=== PATIENT | female | born 1965 | race Caucasian/White ===

== ENCOUNTER 2024-02-21 13:38 | Emergency (ER) | payer OTHER, SELFPAY ==
[2024-02-21 13:41] VITALS: BP 127/86
[2024-02-21 14:49] VITALS: BMI 27.2
[2024-02-21 14:50] VITALS: BP 111/77
[2024-02-21 15:01] VITALS: BP 113/74
[2024-02-21 15:14] LABS: % Basophils 0.3 % (0-2); % Eosinophils 0.8 % (0-6); % Immature Granulocytes 0.1 % (0-0.5); % Lymphocytes 13.4 % (20.5-51.1); % Monocytes 8.8 % (1.7-9.3); % Neutrophils 76.6 % (42.2-75.2); Absolute Eosinophils 0.1 10^3/uL (0-0.7); Absolute Monocytes 0.7 10^3/uL (0.1-0.6); Absolute Neutrophils 5.8 10^3/uL (1.4-6.5); Hemoglobin 13.5 g/dL (12.0-16.0); Mean Corp Hgb Conc. 32.9 g/dL (33.0-37.0); Mean Corpuscular Volume 91.1 fL (81.0-99.0); Mean Platelet Volume 9.2 fL (7.4-10.4); Nucleated Red Blood Cells % 0 %; Platelet Count 357 10^3/uL (130-400); White Blood Cell Count 7.5 10^3/uL (4.8-10.8)
[2024-02-21 15:25] LABS: HCG, Serum Qualitative Screen Negative
--- NOTE | 2024-02-21 15:29 | ED.GENMED ---
History of Present Illness
<Ladan Amaya PA-C - Last Filed: 02/21/24 23:48>
General
Chief Complaint: Abdominal Pain
Source: patient
Exam Limitations: none
Time Seen by Provider: 02/21/24 15:04
Nursing documentation reviewed up to this point in time: agreed with
Travel History
Have you had any contact with someone who has COVID-19?: No
Do you have any symptoms of coronavirus? Fever > 100 degrees, chills, cough, shortness of breath, sore throat, loss of taste or smell, muscle aches, or headache?: No
History of Present Illness
History of Present Illness:
Patient is a 58 year old female with no significant past medical history presenting for evaluation of abdominal pain. She reports that last night around 1AM she had an acute onset sharp abdominal pain in left upper abdomen associated with 3 episodes
of vomiting. She also reports a few loose bowel movements last night. By late morning she felt that her abdominal pain had significantly decreased and she was only feeling a 'dull ache' throughout her abdomen. She was seen in urgent care who
referred her to the emergency department for further evaluation. She denies any fever, chills, chest pain, shortness of breath. No urinary symptoms, hematemesis, hematochezia, or melena. Currently she reports mild 'discomfort' throughout her abdomen
and has not had any more episodes of vomiting or diarrhea.
Patient does report 2 other similar episodes over the past few weeks that were more mild in severity.
She denies any other sick contacts. She states that she ate a prepared chicken and kale dish last night for dinner and popcorn. No recent travel.
Patients LMP was > 5 years ago.
Past History
<Ladan Amaya PA-C - Last Filed: 02/21/24 23:48>
Past History
ED Past Medical History: None
Social History
Tobacco: Non-smoker
Alcohol: Occasional
Personal:
Living: with family
Family History
Family History: Other (Her son recently returned from [place] but is not sick. Father had coronary disease mother had arthritis and RSD. There is a family history of strokes)
Phy Exam
<Ladan Amaya PA-C - Last Filed: 02/21/24 23:48>
Physical Exam
Physical Exam:
General: In no apparent distress, nontoxic appearing
HEENT:Atraumatic, normocephalic; pupils equal round and reactive to light bilaterally, protecting airway
Neck: appears supple, no meningeal sings, trachea midline
CV: RRR, heart sounds normal, No evidence of cyanosis
Resp: No evidence of respiratory distress, lungs clear bilaterally
Abd: Soft, diffusely tender in lower abdomen without rebound or guarding, non-distended; no CVA tenderness
Extremities: No deformities, no evidence of cyanosis or edema
Neuro: alert and oriented x3; grossly intact
Psych: Normal affect
Skin: Intact, no rashes
Course
<Ladan Amaya PA-C - Last Filed: 02/21/24 23:48>
Orders/Labs/Results
Orders:
Orders
02/21/24 14:48
Test Result ONCE
02/21/24 14:58
Complete Blood Count/With Diff Urgent
Comprehensive Metabolic Panel Urgent
HCG, Serum Qualitative Screen Urgent
Lipase Urgent
02/21/24 15:36
0.9% Sodium Chloride 1000 ml [Nss] 1,000 ml IV BOLUS
02/21/24 15:37
CT Abd/pelvis W Iv Cont Urgent
Comment:
Reason For Exam: diffuse abdominal pain, vomiting
Abnormal Lab Results
02/21/24
14:58
MCHC 32.9 L g/dL
(33.0-37.0)
Absolute Lymphs (auto) 1.0 L 10^3/uL
(1.2-3.4)
Absolute Monos (auto) 0.7 H 10^3/uL
(0.1-0.6)
Neutrophils % 76.6 H %
(42.2-75.2)
Lymphocytes % 13.4 L %
(20.5-51.1)
Creatinine 0.5 L mg/dL
(0.6-1.0)
02/21/24 14:58
02/21/24 14:58
Vital Signs
Initial and Last Documented VS:
Initial Vital Signs
Temp Pulse Resp BP Pulse Ox
98.2 F 78 18 127/86 99
02/21/24 13:41 02/21/24 13:41 02/21/24 13:41 02/21/24 13:41 02/21/24 13:41
Last Documented Vital Signs
Temp Pulse Resp BP Pulse Ox
98.2 F 78 18 122/64 98
02/21/24 13:41 02/21/24 13:41 02/21/24 13:41 02/21/24 18:03 02/21/24 18:30
<Curtis Roberts MD - Last Filed: 02/21/24 20:29>
Orders/Labs/Results
Orders:
Orders
02/21/24 14:48
Test Result ONCE
02/21/24 14:58
Complete Blood Count/With Diff Urgent
Comprehensive Metabolic Panel Urgent
HCG, Serum Qualitative Screen Urgent
Lipase Urgent
02/21/24 15:36
0.9% Sodium Chloride 1000 ml [Nss] 1,000 ml IV BOLUS
02/21/24 15:37
CT Abd/pelvis W Iv Cont Urgent
Comment:
Reason For Exam: diffuse abdominal pain, vomiting
Abnormal Lab Results
02/21/24
14:58
MCHC 32.9 L g/dL
(33.0-37.0)
Absolute Lymphs (auto) 1.0 L 10^3/uL
(1.2-3.4)
Absolute Monos (auto) 0.7 H 10^3/uL
(0.1-0.6)
Neutrophils % 76.6 H %
(42.2-75.2)
Lymphocytes % 13.4 L %
(20.5-51.1)
Creatinine 0.5 L mg/dL
(0.6-1.0)
02/21/24 14:58
02/21/24 14:58
Vital Signs
Initial and Last Documented VS:
Initial Vital Signs
Temp Pulse Resp BP Pulse Ox
98.2 F 78 18 127/86 99
02/21/24 13:41 02/21/24 13:41 02/21/24 13:41 02/21/24 13:41 02/21/24 13:41
Last Documented Vital Signs
Temp Pulse Resp BP Pulse Ox
98.2 F 78 18 122/64 98
02/21/24 13:41 02/21/24 13:41 02/21/24 13:41 02/21/24 18:03 02/21/24 18:30
<Ladan Amaya PA-C - Last Filed: 02/21/24 23:48>
MDM/Problems Addressed
Differential Diagnosis Includes:
colitis, food poisoning, gastritis, gastric ulcer, pancreatitis, diverticulitis, appendicitis
MDM/Problems Addressed:
Patient is a 58-year-old female with no significant past medical history presenting for evaluation of diffuse abdominal pain with associated nausea and vomiting. No fever or chills. Mostly asymptomatic this time. Her vital signs are normal on
arrival. Physical exam as documented above. Symptoms most consistent with likely gastroenteritis. Will check basic labs, lipase, . Based on severity of pain�will check CAT scan of abdomen pelvis. Starting IV fluids. Patient denies any
medication for nausea or pain at this time.
CBC without any clinically significant abnormalities. CMP without any clinically significant abnormalities. test negative. CT scan showed findings consistent with enteritis with additional note of moderate ascites within the pelvis.
May all be related to enteritis. Patient does not have a history of liver disease. She does not drink alcohol. Patient is currently undergoing follow-up with GI for possible IBS/celiac disease. She has endoscopy and colonoscopy scheduled in the
near future.
She has remained mainly asymptomatic with stable vital signs since arriving to the emergency department. She is stable for discharge with close GI follow-up, bland diet, return precautions. Patient comfortable with this plan. All questions
answered.
Chronic conditions affecting care:
N/A
Acute Exacerbation and/or Progression of Chronic Illness:
N/A
<Ladan Amaya PA-C - Last Filed: 02/21/24 23:48>
*Radiology
Radiology exam reviewed: preliminary read by ED provider and radiology read reviewed
*Pulse Oximetry
Patient hypoxic: no
*EKG
Interpreted by ED Provider?: NA
*Mail List Processor Interpretation
Rate: Mail List Processor- N/A
*Critical Care Note
Total Time (30-74mins, 75-104mins- exclusive of procedures): Not Applicable
ED Attending Note
<Ladan Amaya PA-C - Last Filed: 02/21/24 23:48>
-
Portions of this chart may have been created with voice recognition software.� Occasional wrong word or��sound alike� substitutions may have occurred due to the inherent limitations of voice recognition software.
<Curtis Roberts MD - Last Filed: 02/21/24 20:29>
ED Attending Note
Patient seen and examined by attending physician: Yes
ED Attending Note:
HPI: 58-year-old female with no significant chronic medical issues, prior surgical history of and tubal ligation presents to the emergency department for evaluation of abdominal pain. Patient reports onset of symptoms yesterday night and
she says she was essentially up all night with intense pain in the left abdomen and had a few episodes of vomiting. She says she did have some loose stools yesterday. No blood in vomiting or stools. Denies any fevers or chills. She initially
went to urgent care for assessment and was referred to ED for further evaluation. She says that she has seen gastroenterology in the past (Dr. Ceja) because she is very sensitive to certain foods; she says she is currently in the midst of workup
for celiac disease, SIBO, food sensitivities.
ROS: Positive for abdominal pain, nausea, vomiting, diarrhea; negative for fever, chills, vaginal bleeding, urinary symptoms
Physical exam:
General: Awake, alert, oriented x3; no acute distress
Head: Normocephalic, atraumatic
Eyes: Conjunctiva normal, sclera anicteric
Throat: Airway intact, handling secretions
Neck: Trachea midline, supple without meningismus
Lungs: Breathing comfortably no distress
Heart: Regular rate
Abd: Normoactive bowel sounds, abdomen is soft, non distended, nontender with no abdominal mass
Neuro: No gross deficits
Skin: no rash
Extremities: Warm well-perfused
Differential diagnosis: Enteritis, food poisoning, diverticulitis, kidney stone, bowel obstruction
Medical decision makin-year-old female presents for evaluation of abdominal pain associate with nausea, vomiting, loose stools. Vital signs are normal. Exam as above. We sent basic labs including a CBC which showed no significant
abnormalities, CMP which was within acceptable range. Her lipase is normal. Her hCG is negative. Her CT of the abdomen pelvis shows signs consistent with enteritis; incidentally she also was noted to have moderate volume ascites. She has no
history of liver disease and says she does not drink any alcohol. She is already known to GI she will follow-up with them for further assessment of this. I did send a message to gastroenterology to ensure good follow-up. Symptoms today likely
related to enteritis. Advised regarding brat diet. Spoke about return precautions all questions answered.
Chronic conditions affecting care: N/A
Acute exacerbation or progression of chronic illness: N/A
History source: Patient, spouse
Data reviewed: N/A
Medications/testing considered: N/A
Social determinants of health: N/A
Discussion with other providers: Gastroenterology
Discharge Plan
Departure
Patient Disposition: Home (Routine Discharge)
Date of Disposition: 02/21/24
Time of Disposition: 19:00
Patient with high blood pressure during this ER visit?: No
Covid-19: Not Applicable
Discharge Problem:
Enteritis, Abdominal pain
Instructions: Mcdaniels Diet, Fluid in the Belly (Ascites) (DC), Abdominal Pain, Adult ED
Prescriptions:
New
ondansetron 4 mg tablet,disintegrating
4 mg PO Q8H PRN (Reason: nausea and vomiting) Qty: 7 0RF
No Action
Adrenal Support Supplement
1 tab PO DAILY
ibuprofen 400 MG tablet
400 mg PO Q4HPRN PRN (Reason: pain)
lactase [Dairy Relief] 1 CAPSULE tablet
1 cap PO QIDPRN PRN (Reason: dairy ingestion)
multivitamin with minerals [Hair,Skin and Nails] 1 EACH tablet
1 ea PO DAILY
progesterone micronized 100 MG capsule
25 mg PO BID
docosahexaenoic acid-epa 1 CAP capsule
1 cap PO DAILY
multivitamin with folic acid [Tab-A-Arjun] 1 TABLET tablet
1 tab PO DAILY
Dehist
1 tab PO TID
Thyroid Support Supplement
1 tab PO DAILY
Referrals:
Ron Curtis DO [Family Provider] -
Activity Restrictions/Additional Instructions:
- Return to the emergency department with any high fevers, severe abdominal pain, intractable nausea/vomiting, severe back pain, worsening current symptoms, or any other concerns
-As discussed�you should follow-up with your GI doctor for further evaluation/management
-Prescription for Zofran has been sent to your pharmacy. You can take this every 8 hours as needed for severe nausea
-It is important to stay well-hydrated
Interventions
Interventions:
*Risk Screen - Suicide Last Done: 02/21/24 13:41
*General Assessment Last Done: 02/21/24 13:41
*Neglect/Abuse Screening Last Done: 02/21/24 14:49
*ED COVID-19 Vaccine History Last Done: 02/21/24 13:41
*Nursing Disposition Last Done: 02/21/24 19:33
SQ-Vhvpdn-Qwjaxpmcvy Assessment Last Done: 02/21/24 14:49
Discharge Date and Time
Discharge Date/Time: 02/21/24 19:34
Print Language: URDU
[2024-02-21 15:30] LABS: ALT (SGPT) 19 U/L (0-35); AST (SGOT) 24 U/L (14-36); Albumin 3.9 g/dl (3.5-5.0); Alkaline Phosphatase 54 U/L (38-126); Blood Urea Nitrogen 15 mg/dl (7-17); Calcium 9.4 mg/dl (8.4-10.2); Carbon Dioxide 27 mmol/L (22-30); Chloride 105 mmol/L (98-107); Estimated Creatinine Clearance 106 ml/min; Glucose 95 mg/dl (70-99); Lipase 73 U/L (23-300); Sodium 135 mmol/L (135-145); Total Bilirubin 0.4 mg/dl (0.2-1.3); Total Protein 6.3 g/dl (6.3-8.2); eGFR > 60.00
[2024-02-21] MEDS: NSS 1000 IV (15:55)
[2024-02-21 16:00] VITALS: BP 103/60
[2024-02-21 17:00] VITALS: BP 117/71
[2024-02-21 18:03] VITALS: BP 122/64
== END 2024-02-21 19:34 | disposition home or self-care (01) ==
LOC: EMR 13:38
PROVIDERS: EMERGENCY PHYSICIAN Emergency Medicine; FAMILY PHYSICIAN Family Medicine
DX: K52.9 Noninfective gastroenteritis and colitis, unspecified (principal); R10.9 Unspecified abdominal pain
CPT/HCPCS: 99285; 96360; 74177; 80053; 83690; 84703; 85025; Q9967

== ENCOUNTER → 2024-04-02 06:38 | Day surgery (SDC) | payer OTHER, SELFPAY | LOC: GI 06:38 | PROVIDERS: ATTENDING PHYSICIAN Internal Medicine | DX: Z12.11 Encounter for screening for malignant neoplasm of colon (principal); K57.30 Diverticulosis of large intestine without perforation or abscess without bleeding; K64.9 Unspecified hemorrhoids; R19.4 Change in bowel habit | CPT/HCPCS: 45380; 88305 ==

== ENCOUNTER 2024-04-02 18:23 | Day surgery (SDC) | payer OTHER, SELFPAY ==
[2024-04-02] VITALS (7 sets, daily range): BP systolic 121–155; BP diastolic 68–86; BMI 28.5; BMI 27.8
--- NOTE | 2024-04-02 12:46 | ED.GENMED ---
History of Present Illness
General
Chief Complaint: Abdominal Pain
Time Seen by Provider: 04/02/24 12:37
Travel History
Have you had any contact with someone who has COVID-19?: No
Do you have any symptoms of coronavirus? Fever > 100 degrees, chills, cough, shortness of breath, sore throat, loss of taste or smell, muscle aches, or headache?: No
History of Present Illness
History of Present Illness:
58-year-old female presents to the emergency department from the outpatient GI lab due to left upper abdominal pain that began upon awakening from anesthesia. She states pain is pleuritic in nature improves when she leans forward. Denies any chest
pain or difficulty breathing. No vomiting. Multiple biopsies were taken in the colon
Past History
Past History
ED Past Medical History: None
Social History
Tobacco: Non-smoker
Alcohol: Occasional
Personal:
Living: with family
Family History
Family History: Other (Her son recently returned from [facility] [place] but is not sick. Father had coronary disease mother had arthritis and RSD. There is a family history of strokes)
Review of Systems
Review of Systems
Allergies reviewed?: Yes
All Other Systems: ROS reviewed and negative except as documented in HPI and ROS
Phy Exam
Physical Exam
Physical Exam:
GEN: Well appearing, NAD, WDWN
HEENT: Oral mucosa moist, no scleral icterus
Cardiac: Regular rate
Lung: No respiratory distress, no tachypnea
Abdomen: Soft, grossly nontender
MSK: No gross deformity or injuries
Skin: Good color, no pallor or jaundice, no rashes
Neuro: AO x3, moves all extremities freely
Psych: Calm, cooperative
Course
Orders/Labs/Results
Orders:
Orders
04/02/24 12:45
CT Abd/Pel (IV only)-DH only Urgent
Comment:
Reason For Exam: abd pain post colonoscopy/biopsy eval for perf
04/02/24 13:16
Complete Blood Count/No Diff Urgent
Comprehensive Metabolic Panel Urgent
04/02/24 Dinner
Full Liquids
At Your Request: Full Participation
Flush Continuous pump feedings with water (mL/hr): 25
Comment: ok to have crackers
04/02/24 17:03
Acetaminophen 1000MG/100Ml [Ofirmev] 1,000 mg in 100 ml IV ONCE
Acetaminophen IV Indication:: ED Narcotic Naive Pt-ONCE
Lactated Ringers [Lr] 1,000 ml IV BOLUS
04/02/24 17:27
EKG [Electrocardiogram (*1)] Urgent
Reason for Study: Other
Other Reason for Exam: shoulder pain
04/02/24 17:55
Admit/Transfer Patient As Directed
Co-Sign Provider:
Level of Care: Post Proc/Surg Recovery
Assign to:: Medical/Surgical
Physician / Group: Hospitalist
Diagnosis: Splenic Contusion
Reason for Overnight Stay: Bleeding/Bleeding Risk
04/02/24 17:56
Code Status As Directed
Resuscitation Status: Full Code
04/02/24 18:54
Acetaminophen [Tylenol] 650 mg PO Q4HPRN PRN
Bisacodyl [Dulcolax] 10 mg RECTAL [id number] PRN
Docusate W/Senna [Senokot-S] 1 tablet PO BIDPRN PRN
Polyethylene Glycol Powder [Miralax] 17 grams PO DAILYPRN PRN
04/02/24 18:54
GASTROINTESTINAL CONSULT Routine
Consulting Provider: Madison Ceja
Was physician already notified: Yes
Reason for consult: Splenic injury
IRAD CONSULT Routine
Consulting Provider: Abbe Robledo
Was physician already notified: Yes
Reason for Consult/Procedure: Splenic injury
Acknowledgement that appropriate orders are entered: Yes
SURGICAL CONSULT Routine
Consulting Provider: Aidan Camara
Was physician already notified: Yes
Reason for consult: Splenic injury
Activity As Directed
Activity Level: As Tolerated
Pneumatic Compression Sleeves As Directed
Type: Knee high
Vital Signs As Directed
Frequency: q4h
Rx Incentive Spirometry [RESP] Routine
Frequency: q1h while awake
Rx Incentive Spirometry [RESP] Routine
Frequency: q1h while awake
DX Deep Vein Thrombosis Video Routine
04/02/24 19:00
Flush (0.9% Sodium Chloride) [Flush (Nss)] See Dose Instructions IV PER PROTOCOL
04/02/24 20:00
H&H Q6H
progesterone micronized See Dose Instructions PO BID
04/03/24 02:00
H&H Q6H
04/03/24 06:00
Basic Metabolic Panel IN AM
Complete Blood Count/No Diff IN AM
04/03/24 08:00
H&H Q6H
Cholecalciferol (Vitamin D3) [VITAMIN D3 (cholecalciferol)] 25 mcg PO DAILY
Multivitamin [Theragran] 1 tablet PO DAILY
magnesium citrate See Dose Instructions PO DAILY
Abnormal Lab Results
04/02/24
13:16
RBC 4.00 L 10^6/uL
(4.20-5.40)
Hct 36.6 L %
(37.0-47.0)
04/02/24 13:16
Vital Signs
Initial and Last Documented VS:
Initial Vital Signs
Temp Pulse Resp BP Pulse Ox
98.0 F 61 18 121/70 97
04/02/24 12:10 04/02/24 12:10 04/02/24 12:10 04/02/24 12:10 04/02/24 12:10
Last Documented Vital Signs
Temp Pulse Resp BP Pulse Ox
98.4 F 89 18 150/73 98
04/02/24 19:03 04/02/24 19:03 04/02/24 19:03 04/02/24 19:03 04/02/24 19:03
MDM/Problems Addressed
MDM/Problems Addressed:
Unfortunately patient identified to have a small splenic laceration. She is clinically stable with no evidence for acute blood loss at night. GI, interventional radiology, and general surgery all made aware of these findings, patient will be
admitted for hemoglobin trending and reexamination
*Critical Care Note
Total Time (30-74mins, 75-104mins- exclusive of procedures): Not Applicable
ED Attending Note
-
Portions of this chart may have been created with voice recognition software.� Occasional wrong word or��sound alike� substitutions may have occurred due to the inherent limitations of voice recognition software.
Discharge Plan
Departure
Patient Disposition: Admit
Date of Disposition: 04/02/24
Time of Disposition: 17:16
Admit to: Med/Surg
Presentation/result/management discussed w/ accepting MD/DO: Hospitalist
Discharge Problem:
Minor laceration of spleen
Interventions
Interventions:
*Risk Screen - Suicide Last Done: 04/02/24 12:10
*General Assessment Last Done: 04/02/24 13:13
*Neglect/Abuse Screening Last Done: 04/02/24 13:13
ED- Fall Risk Assessment Last Done: 04/02/24 13:13
*ED COVID-19 Vaccine History Last Done: 04/02/24 12:10
*Nursing Disposition Last Done: 04/02/24 18:53
QV-Lckdnu-Aqocfwoweh Assessment Last Done: 04/02/24 13:13
Discharge Date and Time
Discharge Date/Time: 04/02/24 18:53
[2024-04-02 13:26] LABS: Hematocrit 36.6 % (37.0-47.0); Hemoglobin 12.2 g/dL (12.0-16.0); Mean Corp Hgb Conc. 33.3 g/dL (33.0-37.0); Mean Corpuscular Hgb 30.5 pg (27.0-31.0); Mean Corpuscular Volume 91.5 fL (81.0-99.0); Mean Platelet Volume 9.3 fL (7.4-10.4); Platelet Count 308 10^3/uL (130-400); Red Cell Dist. Width 13.1 % (11.5-14.5); White Blood Cell Count 5.7 10^3/uL (4.8-10.8)
[2024-04-02 14:28] LABS: ALT (SGPT) 21 U/L (0-35); AST (SGOT) 27 U/L (14-36); Alkaline Phosphatase 48 U/L (38-126); Blood Urea Nitrogen 15 mg/dl (7-17); Carbon Dioxide 25 mmol/L (22-30); Chloride 107 mmol/L (98-107); Estimated Creatinine Clearance 108 ml/min; Glucose 90 mg/dl (70-99); Sodium 136 mmol/L (135-145); Total Bilirubin 0.3 mg/dl (0.2-1.3); Total Protein 6.3 g/dl (6.3-8.2); eGFR > 60.00
[2024-04-02] MEDS: LR 1000 IV (17:11)
[2024-04-02] MEDS: OFIRMEV 100 IV (17:11)
--- NOTE | 2024-04-02 17:23 | HPS.HSE ---
Family Physician
-
Family Physician: Ron Curtis DO
Chief Complaint
-
Abdominal pain
History of Present Illness
58-year-old old female underwent a colonoscopy today for loose stools by . She had abdominal pain upon awakening from anesthesia complaining of left shoulder pain. She was sent to ER where She had a CAT scan of the abdomen pelvis which
showed a subtle small low-density focus involving the inferior spleen with an adjacent band of soft tissue density of the inferior margin of the spleen and adjacent to the splenic flexure also small to moderate amount of hemorrhagic fluid within the
pelvis suggestive of splenic contusion with adjacent associated hemorrhage.
Medical History
Past Medical History
Past Medical History: Reports Other
Additional Past Medical History:
Pulmonary nodule
Past Surgical History: Reports Other
Additional Past Surgical History:
, tubal ligation, exploratory laparotomy for infertility
Social History
Tobacco: Non-smoker
Alcohol: Occasional
Drug: None
Personal:
Living: With Family
Family History
Family History: CAD (father)
Allergies / Home Medications
Allergies reflects when Allergies were last updated in [facility].
Home Medications with original date entered in [facility]
Allergy/Medication List:
Allergies
Allergy/AdvReac Type Severity Reaction Status Date / Time
azithromycin Allergy Nausea / Verified 04/02/24 12:09
Vomiting
Penicillins Allergy Rash Verified 04/02/24 12:09
Home Medications
multivitamin with folic acid 400 mcg tablet (Tab-A-Arjun) 1 tab PO DAILY 06/06/19
progesterone micronized 100 mg capsule 25 mg PO BID 06/06/19
Tere Powder 1 dose PO DAILY 04/02/24
Ginkgo Biloba Patch 1 mg topical DAILY 04/02/24
Shatavari 1.5 ml PO BID 04/02/24
Support Supplement 2 tab PO DAILY 04/02/24
Turmeric Extract/Danelion 435 mg PO BID 04/02/24
ascorbic acid (vitamin C) 100 mg tablet (Vitamin C) 450 mg PO DAILY 04/02/24
cholecalciferol (vitamin D3) 25 mcg (1,000 unit) tablet (Vitamin D3) 25 mcg PO DAILY 04/02/24
cod liver oil 1 cap PO DAILY 04/02/24
hawthorn 1 mg PO BID 04/02/24
krill oil 2 cap PO DAILY 04/02/24
magnesium citrate 100 mg tablet 130 mg PO DAILY 04/02/24
milk thistle 1 tab PO DAILY 04/02/24
vitamin E 4 mg PO TID 04/02/24
Review of Systems
-
A 12 point ROS was completed and negative except as noted: Yes
Cardiac: Denies Chest Pain
Abdomen/GI: Reports Abdominal Pain
Musculoskeletal: Reports Other (left shoulder area pain)
Physical Exam
Vital Signs
Vital Signs
Temp Pulse Resp BP Pulse Ox
98.0 F 61 18 139/73 99
04/02/24 12:10 04/02/24 12:10 04/02/24 12:10 04/02/24 17:00 04/02/24 17:15
Physical Exam
General: No Apparent Distress
Respiratory: Clear
Cardiac: S1/S2 and Regular Rhythm
GI: Soft and Tender (LUQ)
Neuro: AO x 3 and Nonfocal/grossly intact
Laboratory Results
-
04/02/24 13:16
04/02/24 13:16
Laboratory Results
Total Bilirubin 0.3 mg/dl (0.2-1.3) 04/02/24 13:16
AST 27 U/L (14-36) 04/02/24 13:16
ALT 21 U/L (0-35) 04/02/24 13:16
Alkaline Phosphatase 48 U/L (38-126) 04/02/24 13:16
Data Reviewed
-
CT Scan: Report Reviewed by me (CT-7 mm well-defined pulmonary nodule within the left lower lobe of the lung, stable dating back to CT of the chest from July 11, 2019, compatible with a benign pulmonary nodule, for which no further imaging
follow-up is needed. Subtle small low-density focus involving the inferior spleen with an)
Impression/Plan
-
IMPRESSION/PLAN:
#Splenic contusion post colonoscopy
Pt not on blood thinners
Admit postop observation
Watch Hb
GI/IR and Surgery consulted.
Type and screen
# Pulmonary nodule
Patient has followed with pulmonary in the past and aware about this
# SCDs for DVT prophylaxis
# Full code
Discussed with GI
Discussed with patient's at bedside
--- NOTE | 2024-04-02 17:27 | W.PN.ADMIT ---
Addendum entered and electronically signed by Madison Ceja DO 04/02/24 17:37:
post prandial bloating (first sentence dictation error)
Original Note:
Progress Note - Admit
Progress Note - Admit
Savi is a 58-year-old female who is otherwise healthy who I met as an outpatient in January for perennial bloating and semiformed stools after meals who also needed her first-time screening colonoscopy. After our meeting she developed an acute
illness and was in the emergency room for left upper quadrant pain found to have a likely enteritis with pelvic ascites. Back pain resolved and she was here as an outpatient for her follow-up and first colonoscopy. The colonoscopy was not
difficult and she had a good prep. I did do biopsies throughout the normal colon because of her loose stools to look for microscopic colitis. Vital signs were stable throughout the procedure. After waking up she had pleuritic type left upper
quadrant pain that radiated into her shoulder. I then sent her over to the emergency room to rule out splenic injury with a CAT scan.
For she had labs which were all within normal limits with a white count of 5.7, hemoglobin of 12.2, platelets 308, normal CMP. Blood pressure 139/73 with a heart rate of 61. Afebrile at 98 with a respiratory rate of 18 and oxygen saturation 99% on
room air. She is comfortable unless she takes a deep breath or laughs then she gets the pain in the left upper quadrant that radiates into her left shoulder blade. Otherwise she is comfortable. She underwent a CT scan which confirmed a small
inferior splenic contusion of roughly 1 cm with adjacent likely small hematoma. Also had a small to moderate amount of free fluid in the pelvis with possible component of hemorrhage in the fluid. Liver was within normal limits. Pancreas normal
limits. No free intraperitoneal air.
On physical exam she is comfortable with no significant tenderness with palpation.
Assessment and plan:
#iatrogenic splenic injury post uncomplicated colonoscopy with biopsies alone throughout for microscopic colitis:
--- Most likely a superficial capsular splenic tear with no significant injury.
--- She is hemodynamically stable and comfortable with normal labs and normal vital signs
-- Will keep her overnight for IV fluids, every 6 H&H checks for observation
-- Very low risk of ongoing bleeding or IR or surgical intervention
--- I did run the case by Dr. Grant and he reviewed the images as well and agrees with the plan
-- The emergency room did talk to interventional radiology who does not think any intervention is needed
-- Okay for full liquids with some crackers
-- Please keep me up-to-date with any clinical changes, otherwise I will see her in the morning
[2024-04-02 20:06] LABS: Hematocrit 34.6 % (37.0-47.0); Hemoglobin 11.7 g/dL (12.0-16.0)
--- NOTE | 2024-04-02 20:30 | PTCARENOTE ---
Received pt from ED into 2130. Pt ambulated to the bed, steady on feet. AAOx3. VSS. Mild pain to left upper quadrant of abdomen. See assessment. Pt resting comfortably in bed, call anne within reach.
[2024-04-02] MEDS: TYLENOL 650 MG PO (21:06)
[2024-04-02] MEDS: NON-FORMULARY ITEM 25 MG PO (21:41)
[2024-04-03] MEDS: LR 1000 IV (02:33)
[2024-04-03] MEDS: TYLENOL 650 MG PO ×2 (02:35→09:48)
[2024-04-03 03:13] LABS: Hematocrit 36.3 % (37.0-47.0); Hemoglobin 12.2 g/dL (12.0-16.0)
[2024-04-03 06:53] LABS: Hematocrit 34.1 % (37.0-47.0); Hemoglobin 11.5 g/dL (12.0-16.0); Mean Corp Hgb Conc. 33.7 g/dL (33.0-37.0); Mean Corpuscular Hgb 29.9 pg (27.0-31.0); Mean Corpuscular Volume 88.8 fL (81.0-99.0); Mean Platelet Volume 9.7 fL (7.4-10.4); Platelet Count 310 10^3/uL (130-400); Red Blood Cell Count 3.84 10^6/uL (4.20-5.40); Red Cell Dist. Width 13.1 % (11.5-14.5); White Blood Cell Count 5.4 10^3/uL (4.8-10.8)
--- NOTE | 2024-04-03 06:54 | W.PN.GI.CBS2 ---
Today's Communication / Plan
-
See assessment and plan
[place] texted Dr. Hunter
Assessment / Plan
-
Savi is a 58-year-old healthy female who underwent a diagnostic uncomplicated colonoscopy yesterday for loose stools and for her for 1st screening who woke up postanesthesia with left upper quadrant pain found to have a small splenic contusion with
normal vital signs and normal labs not requiring any intervention but was kept overnight for observation
# Post colonoscopy splenic contusion
--- Patient is hemodynamically stable with no drop in hemoglobin
--- Vitals are stable, labs are stable, her pain is improving and she only use Tylenol overnight
-- Will get 1 more hemoglobin checked this morning and if stable okay for discharge
-- I told her no tennis for at least 1 week
-- Okay for alternating Tylenol with tramadol if needed
-- Okay for regular diet
-- No need for IR or surgical consults -myself and the emergency room discussed the case with them yesterday and no intervention required
-- Likely discharge this morning
-- I will call her tomorrow and Sunday just to check-in
Total Time Spent with Patient (in minutes): 25
Subjective
Subjective
Date of Service: April 03, 2024
Patient is improving. Her pain is much less and she is only taken Tylenol. No dizziness
Objective
Data Reviewed
Laboratory Data:
Laboratory Results
Total Bilirubin 0.3 mg/dl (0.2-1.3) 04/02/24 13:16
AST 27 U/L (14-36) 04/02/24 13:16
ALT 21 U/L (0-35) 04/02/24 13:16
Alkaline Phosphatase 48 U/L (38-126) 04/02/24 13:16
Vital Signs and I&O:
Vital Signs
Temp Pulse Resp BP Pulse Ox
98.8 F 72 16 129/68 96
04/02/24 23:35 04/02/24 23:35 04/02/24 23:35 04/02/24 23:35 04/03/24 02:04
I&O
04/01/24 04/02/24 04/03/24
06:59 06:59 06:59
Intake Total 960 / 960
Balance 960 / 960
Physical Exam
Physical Exam
HEENT: Anicteric
Cardiology: Normal Sinus Rhythm
Pulmonary: Clear
GI: Soft, Non Distended and Non Tender
Extremities: No Edema
Neuro: Non Focal
[2024-04-03 07:05] VITALS: BP 134/66
[2024-04-03 07:17] LABS: Blood Urea Nitrogen 9 mg/dl (7-17); Calcium 9.1 mg/dl (8.4-10.2); Carbon Dioxide 26 mmol/L (22-30); Chloride 106 mmol/L (98-107); Estimated Creatinine Clearance 107 ml/min; Glucose 84 mg/dl (70-99); Potassium 4.1 mmol/L (3.5-5.1); Sodium 137 mmol/L (135-145); eGFR > 60.00
[2024-04-03] MEDS: THERAGRAN 1 TABLET PO (09:25)
[2024-04-03] MEDS: VITAMIN D3 (cholecalciferol) 25 MCG PO (09:26)
[2024-04-03] MEDS: NON-FORMULARY ITEM 25 MG PO (09:27)
--- NOTE | 2024-04-03 09:58 | W.PN.HOSP.TC ---
Addendum entered and electronically signed by Jaqui Hunter MD 04/03/24 14:04:
Dictn- [id number]
Original Note:
Today's Communication/Plan
-
If the hemoglobin is stable will advance diet and discharge patient.
Assessment / Plan
Assessment / Plan
Pain is much better patient is able to take deep breaths with incentive spirometer.
#Splenic contusion post colonoscopy
Pt not on blood thinners, but was on Ginko Biloba patch which she took off the day before the procedure.
Pain is better
Hemoglobin is stable
Exam hemoglobin is pending
Discussed with GI advance diet if hemoglobin is stable
Patient is aware to avoid any core exercises or any strenuous activity in the next couple of weeks.
# Pulmonary nodule
Patient has followed with pulmonary in the past and aware about this
# SCDs for DVT prophylaxis
# Full code
Discussed with GI
Discussed with patient's at bedside
Discussed with nursing
Anticipated Discharge: Today
Subjective/Interval History
-
Date of Service: April 03, 2024
Objective Data
-
Labs:
Laboratory Results
04/03/24 04/03/24 04/03/24
02:27 05:47 07:47
WBC 5.4
Hgb 12.2 11.5 L Pending
Hct 36.3 L 34.1 L Pending
Plt Count 310
Sodium 137
Potassium 4.1
Chloride 106
Carbon Dioxide 26
BUN 9
Creatinine 0.5 L
Glucose 84
Calcium 9.1
Vital Signs:
Vital Signs
Temp Pulse Resp BP Pulse Ox
97.8 F 62 16 134/66 98
04/03/24 07:05 04/03/24 07:05 04/03/24 07:05 04/03/24 07:05 04/03/24 07:05
I&O
04/02/24 04/03/24 04/04/24
06:59 06:59 06:59
Intake Total 960 / 960
Balance 960 / 960
[2024-04-03] MEDS: PROTONIX 40 MG PO (11:08)
[2024-04-03 13:56] LABS: Hematocrit 36.2 % (37.0-47.0)
--- NOTE | 2024-04-03 14:03 | W.DS.TRANS ---
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
-
Discharge Instructions:
Discharge Diagnosis/Procedures Splenic contusion post colonoscopy, 7 mm well-
defined pulmonary nodule in the left lower lobe
Diet As tolerated
Driving Restrictions No driving for 1 week
Blood Work BMP 4 days
Instructions:
Stand-Alone Forms:
Changes to Home Medications: Yes
Discharge Medications:
DC Medications w/original date entered in [facility]
multivitamin with folic acid 400 mcg tablet (Tab-A-Arjun) 1 tab PO DAILY 06/06/19
acetaminophen 325 mg tablet 650 mg (2 x 325 mg) PO Q4HPRN PRN mild pain #0 tabs 04/03/24
ascorbic acid (vitamin C) 100 mg tablet (Vitamin C) 450 mg (4.5 x 100 mg) PO DAILY Supplement #0 tabs 04/03/24
cholecalciferol (vitamin D3) 25 mcg (1,000 unit) tablet (Vitamin D3) 25 mcg PO DAILY Supplement #0 tabs 04/03/24
cod liver oil 1 cap PO DAILY Supplement ##0 04/03/24
polyethylene glycol 3350 17 gram oral powder packet (HealthyLax) 17 g PO DAILYPRN PRN constipation #0 ea 04/03/24
progesterone micronized 100 mg capsule 25 mg (1/4 x 100 mg) PO BID Hormonal agent #0 caps 04/03/24
tramadol 50 mg tablet 50 mg PO Q6HPRN PRN moderate pain #12 tabs 04/03/24
Home Medication Changes
new
polyethylene glycol 3350 17 gram oral powder packet (HealthyLax) 17 g PO DAILYPRN PRN constipation #0 ea 04/03/24
tramadol 50 mg tablet 50 mg PO Q6HPRN PRN moderate pain #12 tabs 04/03/24
Pending Results: No
[2024-04-03 14:35] LABS: Hemoglobin 12.2 g/dL (12.0-16.0)
--- NOTE | 2024-04-03 14:54 | CM ---
I met with Savi and her who was at bedside. Savi is feeling somewhat better, but still having pain. Tylenol has been helpful, but as it starts wearing out her pain escalates.
Savi anticipates being fairly inactive over the next few weeks at the guidance of her physician to help with healing.
No needs identified at this time.
PCP is Dr. Jose Carlos Curtis
Pharmacy is On license of [facility]
[2024-04-03 15:30] VITALS: BP 130/66
== END 2024-04-03 17:21 | disposition home or self-care (01) ==
LOC: PACU 18:23
PROVIDERS: Physician Assistant; ATTENDING PHYSICIAN Hospitalist; CONSULT PHYSICIAN Internal Medicine; EMERGENCY PHYSICIAN Emergency Medicine; FAMILY PHYSICIAN Family Medicine
DX: D78.31 Postprocedural hematoma of the spleen following a procedure on the spleen (principal); Y84.8 Other medical procedures as the cause of abnormal reaction of the patient, or of later complication, without mention of misadventure at the time of the procedure; R91.1 Solitary pulmonary nodule
CPT/HCPCS: 99285; 74177; 80048; 80053; 85014; 85018; 85027; 93005; 96361; 96374; Q9967

== ENCOUNTER → 2024-06-13 09:51 | Outpatient (REF) | payer OTHER, SELFPAY | LOC: RAD 09:51 | PROVIDERS: ATTENDING PHYSICIAN Obstetrics & Gynecology; FAMILY PHYSICIAN Family Medicine | DX: R93.89 Abnormal findings on diagnostic imaging of other specified body structures (principal) | CPT/HCPCS: 76830; 76856 ==

== ENCOUNTER → 2024-08-13 10:08 | Outpatient (REF) | payer OTHER, SELFPAY | LOC: MRI 3T 10:08 | PROVIDERS: ATTENDING PHYSICIAN Internal Medicine; PRIMARYCARE PHYSICIAN Family Medicine | DX: R18.8 Other ascites (principal); S36.029S Unspecified contusion of spleen, sequela | CPT/HCPCS: 72197; 74183; A9575 ==

== ENCOUNTER → 2025-01-06 09:33 | Outpatient (REF) | payer OTHER, SELFPAY | LOC: RAD 09:33 | PROVIDERS: ATTENDING PHYSICIAN Internal Medicine; FAMILY PHYSICIAN Family Medicine | DX: R10.11 Right upper quadrant pain (principal) | CPT/HCPCS: 76700 ==

== ENCOUNTER 2025-04-01 06:30 | Day surgery (SDC) | payer OTHER, SELFPAY | END 2025-04-01 14:05 | disposition home or self-care (01) | LOC: GI 06:30 | PROVIDERS: ATTENDING PHYSICIAN Internal Medicine | DX: R10.9 Unspecified abdominal pain (principal); R11.2 Nausea with vomiting, unspecified; K21.00 Gastro-esophageal reflux disease with esophagitis, without bleeding; K31.89 Other diseases of stomach and duodenum; K29.50 Unspecified chronic gastritis without bleeding; R14.0 Abdominal distension (gaseous); R19.5 Other fecal abnormalities | CPT/HCPCS: 43239; 88305; 88342 ==